=== PATIENT | male | born 1935 | race Caucasian/White ===

== ENCOUNTER 2022-07-29 13:27 | Inpatient (IN) | payer MEDICARE, OTHER ==
[~2022-07-29] VITALS: Ht 182.9 cm; Wt 84.1 kg
[~2022-07-29 13:27] MED LIST: CLON0.1T PO; LISI20TA24 PO
[2022-07-29 13:51] LABS: APPEARANCE,URINE CLEAR (CLEAR); BILIRUBIN,URINE NEGATIVE (NEGATIVE); COLOR,URINE LIGHT-YELLOW (YELLOW); GLUCOSE, URINE (UA) NEGATIVE (NEGATIVE); KETONES,URINE NEGATIVE (NEGATIVE); LEUKOCYTE ESTERASE ,URINE NEGATIVE Leu/uL (NEGATIVE); NITRATE,URINE NEGATIVE (NEGATIVE); OCCULT BLOOD,URINE NEGATIVE (NEGATIVE); PH,URINE 6.5 (5.0-8.0); PROTEIN,URINE NEGATIVE (NEGATIVE); UROBILINOGEN,URINE 0.2 mg/dL (0.2-1.0)
[2022-07-29 14:00] LABS: BASOPHILS % (AUTO) 0.7 % (0.0-5.0); EOSINOPHILS % (AUTO) 1.9 % (0.0-8.0); HEMATOCRIT 38.5 % (42-54); LYMPHOCYTES % (AUTO) 5.9 % (21.0-51.0); MEAN CORPUSCULAR HEMOGLOBIN 30.7 pg (27.0-33.0); MEAN CORPUSCULAR HGB CONC 34.3 g/dL (32.0-36.0); MEAN CORPUSCULAR VOLUME 89.5 fL (79-99); MONOCYTES % (AUTO) 17.5 % (3.0-13.0); NEUTROPHILS % (AUTO) 73.5 % (40.0-77.0); PLATELET COUNT (AUTO) 108 K/uL (130-400); RED CELL DISTRIBUTION WIDTH 13.2 % (11.0-15.5); WHITE BLOOD COUNT (AUTO) 5.8 K/uL (4.8-10.8)
[2022-07-29 14:28] LABS: ALBUMIN 3.2 g/dL (3.5-5.0); CREATININE 1.3 mg/dL (0.5-1.5); POTASSIUM 3.5 mmol/L (3.5-5.1); TOTAL PROTEIN, SERUM 6.2 g/dL (6.0-8.3)
[2022-07-29] MEDS ORDERED: 0.9%NACL 1000ML 1,000 ML IV ONE ×2 (15:30→15:34)
[2022-07-29 15:36] LABS: ABG BASE EXCESS 1.9 mmol/L (-2.0-3.0); ABG HCO3 25.6 mmol/L (21.0-28.0); ABG OXYGEN SATURATION 97.8 % (95.0-99.0); ABG PCO2 37 mmHg (35-48)
[2022-07-29 18:22] LABS: CREATININE,URINE RANDOM 57 mg/dL (30-135); SODIUM,URINE RANDOM 67 mmol/l (40-220)
[2022-07-29 18:28] LABS: HEMOGLOBIN A1C 5.2 % (4.0-6.0)
[2022-07-29] MEDS ORDERED: ONDANSETRON 4MG INJ IVP PRN (19:00)
[2022-07-29] MEDS ORDERED: ALBUTEROL INHALER 90MCG/INH IH PRN ×2 (19:00→19:30)
[2022-07-29] MEDS ORDERED: ACETAMINOPHEN 500 MG TABLET PO PRN (19:00)
[2022-07-29] MEDS: 0.9%NACL 1000ML 1,000 ML IV SCH (19:57)
[2022-07-29] MEDS ORDERED: Vitamin B Complex/Vit C/Folic Acid PO SCH (20:00)
[2022-07-29] MEDS: BUDESONIDE 0.5 MG/2 ML INH IH SCH (20:07)
[2022-07-29] MEDS ORDERED: Vitamin B Complex/Vit C/Folic Acid ONE (21:25)
[2022-07-29] MEDS ORDERED: DOXYCYCLINE HYCLATE 100 MG TABLET PO ONE (21:25)
[2022-07-29] MEDS ORDERED: PANTOPRAZOLE 40 MG TAB DR ONE (21:25)
[2022-07-29] MEDS ORDERED: GUAIFENESIN-DM 200/20 MG 10 ML ONE (21:26)
[2022-07-29] MEDS: DOXYCYCLINE HYCLATE 100 MG TABLET PO SCH (21:30)
[2022-07-29] MEDS: GUAIFENESIN-DM 200/20 MG 10 ML PO PRN (21:31)
[2022-07-29] MEDS: PANTOPRAZOLE 40 MG TAB DR PO SCH (21:31)
[2022-07-29 21:41] LABS: AMMONIA < 10 umol/L (11-32); CARBON DIOXIDE 28 mmol/L (21-32); CHLORIDE 97 mmol/L (101-111); CREATININE 1.1 mg/dL (0.5-1.5); GLOMERULAR FILTR. RATE CALC 64 mL/min (>90); GLUCOSE,RANDOM 95 mg/dL (70-105); POTASSIUM 3.5 mmol/L (3.5-5.1); SODIUM SERUM 129 mmol/L (136-145); UREA NITROGEN, BLOOD 16 mg/dL (7-18)
[2022-07-29 21:43] LABS: INR 0.96 (0.85-1.15); PROTHROMBIN TIME 10.5 SEC (9.6-11.6)
[2022-07-29 21:45] LABS: PARTIAL THROMBOPLASTIN TIME 26.8 SEC (26.3-35.5)
[2022-07-29 22:18] LABS: CREATINE KINASE, TOTAL 101 U/L (21-232); LACTATE DEHYDROGENASE 206 U/L (81-234)
[2022-07-30 02:32] VITALS: BP 104/80
[2022-07-30] MEDS ORDERED: DOXA4TAB3 PO (03:11)
[2022-07-30] MEDS ORDERED: FINA5TAB41 PO (03:11)
[2022-07-30] MEDS ORDERED: AMLO-257 PO (03:11)
[2022-07-30] MEDS ORDERED: BUDESONIDE 0.5 MG/2 ML INH IH ONE (06:19)
[2022-07-30 06:44] LABS: BASOPHILS % (AUTO) 0.9 % (0.0-5.0); HEMATOCRIT 38.4 % (42-54); LYMPHOCYTES % (AUTO) 12.8 % (21.0-51.0); MEAN CORPUSCULAR HEMOGLOBIN 31.1 pg (27.0-33.0); MEAN CORPUSCULAR HGB CONC 34.1 g/dL (32.0-36.0); MEAN CORPUSCULAR VOLUME 91.2 fL (79-99); NEUTROPHILS % (AUTO) 62.8 % (40.0-77.0); PLATELET COUNT (AUTO) 114 K/uL (130-400); RED BLOOD CELL COUNT(AUTO) 4.21 MIL/uL (4.50-6.20); RED CELL DISTRIBUTION WIDTH 13.2 % (11.0-15.5); WHITE BLOOD COUNT (AUTO) 4.2 K/uL (4.8-10.8)
[2022-07-30 06:58] LABS: CREATININE 1.1 mg/dL (0.5-1.5); CRP QUANTITATIVE 36.1 mg/L (0.00-9.0); MAGNESIUM 2.1 mg/dL (1.80-2.40); POTASSIUM 3.4 mmol/L (3.5-5.1)
[2022-07-30] MEDS: BUDESONIDE 0.5 MG/2 ML INH IH SCH ×2 (07:05→19:54)
[2022-07-30 07:38] VITALS: BP 131/64
[2022-07-30] MEDS: LISINOPRIL 20 MG TABLET PO SCH (09:22)
[2022-07-30] MEDS: ENOXAPARIN SODIUM 40 MG/0.4 ML SYRINGE SQ SCH (09:22)
[2022-07-30] MEDS: DOXYCYCLINE HYCLATE 100 MG TABLET PO SCH ×2 (09:22→22:31)
[2022-07-30] MEDS: BENZONATATE 100 MG CAPSULE PO SCH ×2 (09:22→17:06)
[2022-07-30] MEDS: Vitamin B Complex/Vit C/Folic Acid PO SCH (09:23)
[2022-07-30] MEDS: ASPIRIN 81 MG EC TAB PO SCH (09:23)
[2022-07-30] MEDS: 0.9%NACL 1000ML 1,000 ML IV SCH (09:24)
[2022-07-30] MEDS: GUAIFENESIN-DM 200/20 MG 10 ML PO PRN (11:20)
[2022-07-30 11:27] VITALS: BP 135/71
[2022-07-30 16:09] VITALS: BP 144/83
[2022-07-30 18:48] VITALS: BP 149/86
[2022-07-30] MEDS: PANTOPRAZOLE 40 MG TAB DR PO SCH (22:31)
[2022-07-31] VITALS (7 sets, daily range): BP systolic 117–149; BP diastolic 70–89
[2022-07-31] MEDS: BENZONATATE 100 MG CAPSULE PO SCH ×3 (00:30→15:42)
[2022-07-31] MEDS: BUDESONIDE 0.5 MG/2 ML INH IH SCH ×2 (06:42→19:33)
[2022-07-31] MEDS ORDERED: POTASSIUM CHLORIDE 10% ELIXIR 20 MEQ/15 ML UDCUP PO SCH (07:30)
[2022-07-31] MEDS: ASPIRIN 81 MG EC TAB PO SCH (08:26)
[2022-07-31] MEDS: DOXYCYCLINE HYCLATE 100 MG TABLET PO SCH ×2 (08:26→20:32)
[2022-07-31] MEDS: LISINOPRIL 20 MG TABLET PO SCH (08:26)
[2022-07-31] MEDS: Vitamin B Complex/Vit C/Folic Acid PO SCH (08:26)
[2022-07-31] MEDS: ENOXAPARIN SODIUM 40 MG/0.4 ML SYRINGE SQ SCH (08:27)
[2022-07-31] MEDS: 0.9%NACL 1000ML 1,000 ML IV SCH ×2 (08:29→17:30)
[2022-07-31] MEDS: GUAIFENESIN-DM 200/20 MG 10 ML PO PRN ×2 (12:19→20:36)
[2022-07-31] MEDS: PANTOPRAZOLE 40 MG TAB DR PO SCH (20:32)
[2022-07-31] MEDS: TAMSULOSIN HCL 0.4 MG CAP.ER.24H PO SCH (20:33)
[2022-08-01] MEDS: BENZONATATE 100 MG CAPSULE PO SCH ×3 (02:03→17:28)
[2022-08-01 04:31] VITALS: BP 130/68
[2022-08-01] MEDS: BUDESONIDE 0.5 MG/2 ML INH IH SCH ×2 (06:16→19:39)
[2022-08-01] MEDS: 0.9%NACL 1000ML 1,000 ML IV SCH ×2 (07:00→13:30)
[2022-08-01] MEDS: FINASTERIDE 5 MG TABLET PO SCH (07:35)
[2022-08-01] MEDS: DOXYCYCLINE HYCLATE 100 MG TABLET PO SCH ×2 (07:35→21:39)
[2022-08-01] MEDS: Vitamin B Complex/Vit C/Folic Acid PO SCH (07:36)
[2022-08-01] MEDS: LISINOPRIL 20 MG TABLET PO SCH (07:36)
[2022-08-01] MEDS: ASPIRIN 81 MG EC TAB PO SCH (07:36)
[2022-08-01] MEDS: ENOXAPARIN SODIUM 40 MG/0.4 ML SYRINGE SQ SCH (07:37)
[2022-08-01 08:47] VITALS: BP 145/90
[2022-08-01 12:07] VITALS: BP 144/82
[2022-08-01 16:42] VITALS: BP 94/54
[2022-08-01] MEDS: PANTOPRAZOLE 40 MG TAB DR PO SCH (17:28)
[2022-08-01 19:10] VITALS: BP 107/59
[2022-08-01] MEDS: TAMSULOSIN HCL 0.4 MG CAP.ER.24H PO SCH (21:39)
[2022-08-01 23:28] VITALS: BP 126/64
[2022-08-02] MEDS: 0.9%NACL 1000ML 1,000 ML IV SCH ×3 (01:26→20:15)
[2022-08-02] MEDS: BENZONATATE 100 MG CAPSULE PO SCH ×3 (01:27→17:04)
[2022-08-02 04:18] VITALS: BP 138/76
[2022-08-02] MEDS: BUDESONIDE 0.5 MG/2 ML INH IH SCH ×2 (07:13→18:28)
[2022-08-02 08:00] VITALS: BP 140/82
[2022-08-02] MEDS: DOXYCYCLINE HYCLATE 100 MG TABLET PO SCH (09:10)
[2022-08-02] MEDS: LISINOPRIL 20 MG TABLET PO SCH (09:10)
[2022-08-02] MEDS: Vitamin B Complex/Vit C/Folic Acid PO SCH (09:10)
[2022-08-02] MEDS: ASPIRIN 81 MG EC TAB PO SCH (09:10)
[2022-08-02] MEDS: FINASTERIDE 5 MG TABLET PO SCH (09:10)
[2022-08-02] MEDS: ENOXAPARIN SODIUM 40 MG/0.4 ML SYRINGE SQ SCH (09:13)
[2022-08-02 12:00] VITALS: BP 147/77
[2022-08-02 16:00] VITALS: BP 159/83
[2022-08-02] MEDS: PANTOPRAZOLE 40 MG TAB DR PO SCH (18:49)
[2022-08-02 19:18] LABS: BASOPHILS % (AUTO) 0.7 % (0.0-5.0); EOSINOPHILS % (AUTO) 4.2 % (0.0-8.0); LYMPHOCYTES % (AUTO) 15.1 % (21.0-51.0); MEAN CORPUSCULAR HEMOGLOBIN 31.1 pg (27.0-33.0); MEAN CORPUSCULAR HGB CONC 34.5 g/dL (32.0-36.0); MONOCYTES % (AUTO) 12.9 % (3.0-13.0); NEUTROPHILS % (AUTO) 66.6 % (40.0-77.0); PLATELET COUNT (AUTO) 139 K/uL (130-400); RED BLOOD CELL COUNT(AUTO) 4.89 MIL/uL (4.50-6.20); RED CELL DISTRIBUTION WIDTH 13.1 % (11.0-15.5); WHITE BLOOD COUNT (AUTO) 5.5 K/uL (4.8-10.8)
[2022-08-02 19:25] LABS: CREATININE 1.4 mg/dL (0.5-1.5); POTASSIUM 3.8 mmol/L (3.5-5.1)
[2022-08-02] MEDS ORDERED: AMLODIPINE 5 MG TAB ONE (19:51)
[2022-08-02 20:00] VITALS: BP 131/64
[2022-08-02] MEDS ORDERED: LISINOPRIL 20 MG TABLET PO SCH ×2 (20:00→20:30)
[2022-08-02] MEDS ORDERED: AMLODIPINE 5 MG TAB PO SCH (20:00)
== END 2022-08-03 00:15 | DRG 177 ==
LOC: EDH 13:27 → EDHIP 18:25 → 2AH 07-30 01:55 → 3AH 08-01 19:01
PROVIDERS: ADMIT Internal Medicine; ATTEND Internal Medicine
DX: U07.1 COVID-19 (principal); G92.8 Other toxic encephalopathy; D68.8 Other specified coagulation defects; E87.1 Hypo-osmolality and hyponatremia; N17.9 Acute kidney failure, unspecified; I69.354 Hemiplegia and hemiparesis following cerebral infarction affecting left non-dominant side; E86.1 Hypovolemia; E86.0 Dehydration; R53.81 Other malaise; D64.9 Anemia, unspecified; D69.6 Thrombocytopenia, unspecified; F03.90 Unspecified dementia, unspecified severity, without behavioral disturbance, psychotic disturbance, mood disturbance, and anxiety; E78.5 Hyperlipidemia, unspecified; N40.0 Benign prostatic hyperplasia without lower urinary tract symptoms; J20.8 Acute bronchitis due to other specified organisms; N18.2 Chronic kidney disease, stage 2 (mild); I12.9 Hypertensive chronic kidney disease with stage 1 through stage 4 chronic kidney disease, or unspecified chronic kidney disease; D72.819 Decreased white blood cell count, unspecified; E78.00 Pure hypercholesterolemia, unspecified; E87.6 Hypokalemia; Z79.82 Long term (current) use of aspirin; Z79.899 Other long term (current) drug therapy; Z88.0 Allergy status to penicillin
CPT/HCPCS: 36415; 36600; 70450; 71045; 74230; 80048; 80053; 81003; 82140; 82550; 82570; 82607; 82728; 82746; 82803; 83036; 83605; 83615; 83735; 84100; 84145; 84300; 84443; 84484; 85025; 85378; 85610; 85651; 85730; 86140; 87040; 87071; 87205; 87426; 87635; 87804; 92526; 92610; 92611; 93005; 93970; 94640; 94664; 97039; C9803; G0378; J1650; J7030